=== PATIENT | female | born 1955 | race Two or more races ===

== ENCOUNTER 2017-12-31 08:58 | Outpatient (CLI) | payer OTHER ==
[~2017-12-31 08:58] MED LIST: ANTIVERT25 M1 PO; ATIVAN0.5 M1; CIPRO500 MG PO; DICLOFENAC SODI50 MG PO; LEVSIN/SL0.125 MG PO; OMEPRAZOLE20 MG PO; PAXIL40 MG; RESTORIL30 MG; SINGULAIR 10MG10 MG; SYMBICORT 16010.2 GM; SYNTHROID50 MCG
== END 2017-12-31 14:25 | disposition home or self-care (01) ==
LOC: RAD 501 08:58
DX: K62.5 Hemorrhage of anus and rectum (principal); K64.2 Third degree hemorrhoids; K59.09 Other constipation

== ENCOUNTER 2018-01-16 06:25 | Day surgery (SDC) | payer OTHER ==
[~2018-01-16 06:25] MED LIST changes: +CALTRATE 600 +1 EACH PO; +HYDROCHLOROTHIA25 MG PO; +LINZESS290 MCG PO; +LIPITOR20 MG PO; +LORAZEPAM0.5 MG PO; +PAROXETINE HCL40 MG PO; +VITAMIN D31000 UNIT PO
[2018-01-16] MEDS ORDERED: RECTICARE30 GM TOP (11:13)
[2018-01-16] MEDS ORDERED: PERCOCET 5-3251 EACH PO (11:13)
== END 2018-01-16 15:00 | disposition home or self-care (01) ==
LOC: CIR.AMB 06:25
DX: K64.8 Other hemorrhoids (principal); K64.4 Residual hemorrhoidal skin tags

== ENCOUNTER 2018-03-22 09:53 | Outpatient (CLI) | payer OTHER ==
[~2018-03-22 09:53] MED LIST changes: +PERCOCET 5-3251 EACH PO; +RECTICARE30 GM TOP
== END 2018-03-22 10:01 | disposition home or self-care (01) ==
LOC: SONOGRAMA 09:53 → MAMO-SONO 14:15
DX: R10.2 Pelvic and perineal pain (principal)

== ENCOUNTER 2018-03-22 10:34 | Emergency (ER) | payer OTHER ==
[~2018-03-22] VITALS: Ht 142.2 cm; Wt 83.0 kg
== END 2018-03-22 12:05 | disposition home or self-care (01) ==
LOC: ER 10:34
DX: M54.89 Other dorsalgia (principal)

== ENCOUNTER 2018-03-26 22:48 | Emergency (ER) | payer OTHER ==
[~2018-03-26] VITALS: Ht 149.9 cm; Wt 81.2 kg
[2018-03-27] MEDS ORDERED: PLAVIX75 MG PO (12:43)
[2018-03-27] MEDS ORDERED: MECLIZINE HCL12.5 MG PO (12:43)
== END 2018-03-27 13:45 | disposition home or self-care (01) ==
LOC: ER 22:48
DX: R42 Dizziness and giddiness (principal)
CPT/HCPCS: 70545

== ENCOUNTER 2018-05-14 13:46 | Emergency (ER) | payer OTHER ==
[~2018-05-14] VITALS: Ht 149.9 cm; Wt 85.7 kg
[~2018-05-14 13:46] MED LIST changes: +MECLIZINE HCL12.5 MG PO; +PLAVIX75 MG PO
== END 2018-05-14 17:32 | disposition home or self-care (01) ==
LOC: ER 13:46
DX: R20.0 Anesthesia of skin (principal); R20.2 Paresthesia of skin

== ENCOUNTER → 2018-06-05 | Outpatient (CLI) | payer OTHER | END | disposition home or self-care (01) | LOC: RAD 501 11:19 | DX: M54.2 Cervicalgia (principal) ==

== ENCOUNTER 2018-06-06 09:40 | Outpatient (CLI) | payer OTHER | END 2018-06-06 09:49 | disposition home or self-care (01) | LOC: NUCLEAR 09:40 | DX: I20.1 Angina pectoris with documented spasm (principal); I11.9 Hypertensive heart disease without heart failure | CPT/HCPCS: 78452; 93017; A9500; J0153 ==

== ENCOUNTER 2018-12-02 13:52 | Outpatient (CLI) | payer OTHER | END 2018-12-02 13:55 | disposition home or self-care (01) | LOC: MAMO-SONO 13:52 | DX: Z12.31 Encounter for screening mammogram for malignant neoplasm of breast (principal); Z87.898 Personal history of other specified conditions; N60.11 Diffuse cystic mastopathy of right breast; N60.12 Diffuse cystic mastopathy of left breast ==

== ENCOUNTER 2019-01-06 14:02 | Outpatient (CLI) | payer OTHER | END 2019-01-06 14:06 | disposition home or self-care (01) | LOC: NUCLEAR 14:02 | DX: M81.0 Age-related osteoporosis without current pathological fracture (principal) ==

== ENCOUNTER 2019-01-13 14:54 | Outpatient (CLI) | payer OTHER | END 2019-01-13 14:58 | disposition home or self-care (01) | LOC: RAD 501 14:54 | DX: M84.50XA Pathological fracture in neoplastic disease, unspecified site, initial encounter for fracture (principal); M54.5 Low back pain ==

== ENCOUNTER 2019-04-07 09:52 | Outpatient (CLI) | payer OTHER | END 2019-04-07 10:06 | disposition home or self-care (01) | LOC: MRI 09:52 | DX: M54.16 Radiculopathy, lumbar region (principal); M54.5 Low back pain | CPT/HCPCS: 72148 ==

== ENCOUNTER 2019-07-08 11:37 | Outpatient (CLI) | payer OTHER | END 2019-07-08 11:39 | disposition home or self-care (01) | LOC: RAD 11:37 | DX: M16.11 Unilateral primary osteoarthritis, right hip (principal) ==

== ENCOUNTER 2020-09-13 15:19 | Outpatient (CLI) | payer OTHER | END 2020-09-13 15:31 | disposition HB | LOC: RAD 15:19 | PROVIDERS: ATTEND Internal Medicine | DX: M25.511 Pain in right shoulder (principal); M25.512 Pain in left shoulder ==

== ENCOUNTER 2020-09-28 13:18 | Emergency (ER) | payer OTHER ==
[~2020-09-28] VITALS: Ht 142.2 cm; Wt 81.2 kg
[2020-09-28] MEDS ORDERED: ADULT LOW DOSE81 M1 PO (13:28)
[2020-09-28] MEDS ORDERED: LOSARTAN-HCTZ1 EACH PO (13:29)
[2020-09-28] MEDS ORDERED: GABAPENTIN100 M2 PO (13:29)
[2020-09-28] MEDS ORDERED: PAXIL20 MG PO (13:30)
== END 2020-09-28 17:32 | disposition home or self-care (01) ==
LOC: ER 13:18
DX: M54.12 Radiculopathy, cervical region (principal); M47.892 Other spondylosis, cervical region; M54.2 Cervicalgia; M62.838 Other muscle spasm

== ENCOUNTER 2020-10-13 13:52 | Outpatient (CLI) | payer OTHER ==
[~2020-10-13 13:52] MED LIST changes: +ADULT LOW DOSE81 M1 PO; +GABAPENTIN100 M2 PO; +LOSARTAN-HCTZ1 EACH PO; +PAXIL20 MG PO
== END 2020-10-13 14:00 | disposition home or self-care (01) ==
LOC: MRI 13:52
PROVIDERS: ATTEND Physical Medicine & Rehabilitation
DX: M54.12 Radiculopathy, cervical region (principal); M54.2 Cervicalgia
CPT/HCPCS: 72141

== ENCOUNTER → 2020-11-11 | Outpatient (CLI) | payer OTHER | END | disposition home or self-care (01) | LOC: MRI 11:55 | PROVIDERS: ATTEND Physical Medicine & Rehabilitation | DX: M75.111 Incomplete rotator cuff tear or rupture of right shoulder, not specified as traumatic (principal); M25.511 Pain in right shoulder | CPT/HCPCS: 73218 ==

== ENCOUNTER 2020-11-15 14:26 | Outpatient (CLI) | payer OTHER | END 2020-11-15 15:14 | disposition home or self-care (01) | LOC: RAD 14:26 | PROVIDERS: ATTEND Internal Medicine | DX: J44.1 Chronic obstructive pulmonary disease with (acute) exacerbation (principal) ==

== ENCOUNTER → 2020-11-23 | Outpatient (CLI) | payer OTHER | END | disposition home or self-care (01) | LOC: RAD 11:44 | PROVIDERS: ATTEND Orthopaedic Surgery | DX: M48.8X2 Other specified spondylopathies, cervical region (principal) ==

== ENCOUNTER → 2020-12-23 09:53 | Outpatient (CLI) | payer OTHER | END | disposition home or self-care (01) | LOC: RAD 09:53 → LAB 09:53 | PROVIDERS: ATTEND Orthopaedic Surgery | DX: E78.2 Mixed hyperlipidemia (principal); D68.9 Coagulation defect, unspecified; N39.0 Urinary tract infection, site not specified; R07.9 Chest pain, unspecified; I10 Essential (primary) hypertension ==

== ENCOUNTER 2021-02-17 11:50 | Outpatient (CLI) | payer OTHER | END 2021-02-17 12:03 | disposition home or self-care (01) | LOC: MAMO-SONO 11:50 | PROVIDERS: ATTEND Internal Medicine | DX: N63.0 Unspecified lump in unspecified breast (principal); Z12.31 Encounter for screening mammogram for malignant neoplasm of breast ==

== ENCOUNTER 2021-03-10 10:42 | Outpatient (CLI) | payer OTHER | END 2021-03-10 10:51 | disposition home or self-care (01) | LOC: MRI 10:42 | PROVIDERS: ATTEND Internal Medicine | DX: G44.221 Chronic tension-type headache, intractable (principal) | CPT/HCPCS: 70551 ==

== ENCOUNTER 2021-03-11 09:48 | Outpatient (CLI) | payer OTHER | END 2021-03-11 09:51 | disposition home or self-care (01) | LOC: RAD 09:48 | PROVIDERS: ATTEND Internal Medicine Pulmonary Disease | DX: I10 Essential (primary) hypertension (principal); J43.8 Other emphysema; R06.02 Shortness of breath ==

== ENCOUNTER 2021-07-08 07:54 | Outpatient (CLI) | payer OTHER | END 2021-07-08 08:06 | disposition home or self-care (01) | LOC: MRI 07:54 | PROVIDERS: ATTEND Neuromusculoskeletal Medicine & OMM | DX: R42 Dizziness and giddiness (principal); Q28.2 Arteriovenous malformation of cerebral vessels; H93.3X9 Disorders of unspecified acoustic nerve; I72.8 Aneurysm of other specified arteries; I65.1 Occlusion and stenosis of basilar artery | CPT/HCPCS: 70544; 70552; A9575; 70553 ==

== ENCOUNTER 2022-01-03 08:00 | Outpatient (CLI) | payer OTHER | END 2022-01-04 08:30 | disposition home or self-care (01) | LOC: PPH VACUNA 08:00 | PROVIDERS: ATTEND Emergency Medicine Pediatric Emergency Medicine | DX: Z23 Encounter for immunization (principal); Z71.85 Encounter for immunization safety counseling ==

== ENCOUNTER → 2022-01-24 07:49 | Outpatient (CLI) | payer OTHER | END | disposition home or self-care (01) | LOC: NUCLEAR 07:00 | PROVIDERS: ATTEND Internal Medicine | DX: E04.2 Nontoxic multinodular goiter (principal); E05.90 Thyrotoxicosis, unspecified without thyrotoxic crisis or storm | CPT/HCPCS: 78014; A9528 ==

== ENCOUNTER 2022-01-25 07:40 | Outpatient (CLI) | payer OTHER | END 2022-01-25 07:48 | disposition home or self-care (01) | LOC: NUCLEAR 07:40 | PROVIDERS: ATTEND Internal Medicine | DX: E04.2 Nontoxic multinodular goiter (principal); E05.90 Thyrotoxicosis, unspecified without thyrotoxic crisis or storm | CPT/HCPCS: 78014; A9528 ==

== ENCOUNTER 2022-05-03 14:21 | Outpatient (CLI) | payer OTHER | END 2022-05-03 14:27 | disposition home or self-care (01) | LOC: RAD 14:21 | PROVIDERS: ATTEND Internal Medicine | DX: S62.609A Fracture of unspecified phalanx of unspecified finger, initial encounter for closed fracture (principal); S62.627B Displaced fracture of middle phalanx of left little finger, initial encounter for open fracture ==

== ENCOUNTER 2022-05-10 09:54 | Outpatient (CLI) | payer OTHER | END 2022-05-10 10:01 | disposition home or self-care (01) | LOC: SONOGRAMA 09:54 | PROVIDERS: ATTEND Internal Medicine Sports Medicine | DX: E04.1 Nontoxic single thyroid nodule (principal) ==

== ENCOUNTER 2022-11-08 13:06 | Outpatient (CLI) | payer OTHER | END 2022-11-08 13:17 | disposition home or self-care (01) | LOC: MAMO-SONO 13:06 | PROVIDERS: ATTEND Internal Medicine | DX: Z12.31 Encounter for screening mammogram for malignant neoplasm of breast (principal); N64.4 Mastodynia; N60.11 Diffuse cystic mastopathy of right breast ==

== ENCOUNTER 2022-11-09 13:46 | Outpatient (CLI) | payer OTHER | END 2022-11-09 13:57 | disposition home or self-care (01) | LOC: NUCLEAR 13:46 | PROVIDERS: ATTEND Internal Medicine | DX: M81.0 Age-related osteoporosis without current pathological fracture (principal) ==

== ENCOUNTER 2024-03-04 12:42 | Outpatient (CLI) | payer OTHER | END 2024-03-04 12:48 | disposition home or self-care (01) | LOC: MAMO-SONO 12:42 | PROVIDERS: ATTEND Internal Medicine | DX: N64.4 Mastodynia (principal); R92.8 Other abnormal and inconclusive findings on diagnostic imaging of breast; Z12.31 Encounter for screening mammogram for malignant neoplasm of breast ==

== ENCOUNTER 2024-06-25 13:23 | Outpatient (CLI) | payer OTHER | END 2024-06-25 13:31 | disposition home or self-care (01) | LOC: RAD 13:23 | PROVIDERS: ATTEND Internal Medicine | DX: M54.17 Radiculopathy, lumbosacral region (principal); M25.561 Pain in right knee; M25.562 Pain in left knee ==

== ENCOUNTER 2024-09-13 11:55 | Emergency (ER) | payer OTHER ==
[~2024-09-13] VITALS: Ht 149.9 cm; Wt 78.5 kg
[2024-09-13 17:44] LABS: PH,URINE 8.5 (5.0-8.0); URINE APPEARANCE Clear; URINE BILIRRUBIN Negative (NEGATIVE); URINE BLOOD Negative; URINE COLOR Yellow; URINE GLUCOSE Negative (NEGATIVE); URINE KETONE Negative (NEGATIVE); URINE LEUKOCYTE Small; URINE NITRATE Negative; URINE PROTEIN 30 (NEGATIVE)
[2024-09-13 17:48] LABS: URINE BACTERIA 5372.1 uL (0.0-1933); URINE RBC 19.5 uL (0.0-20.8); URINE WBC 54.9 uL (0.0-23.2)
[2024-09-13 18:28] LABS: HEMATOCRIT 41.7 % (36.0-45.00); HEMOGLOBIN 14.1 g/dL (12.0-15.00); MEAN CELL VOLUME 84.2 fL (80.00-100.00); MEAN CORPUSCULAR HEMOGLOBIN 28.5 pg (27.00-32.0); MEAN CORPUSCULAR HGB CONC 33.9 g/dl (32.0-36.0); PLATELET COUNT 295 K/uL (150-450); RED BLOOD COUNT 4.95 M/uL (4.00-6.00); RED CELL DISTRIBUTION WIDTH 14.5 % (11.5-14.5)
[2024-09-13 18:31] LABS: ALBUMIN 3.8 gm/dL (3.4-5.0); BILIRUBIN TOTAL 0.41 mg/dL (0.3-1.2); CALCIUM 9.6 mg/dL (8.5-10.1); CREATININE SERUM 0.95 mg/dL (0.55-1.02); GFR 58.33; GLOBULINA 4.4 G/DL (2.4-3.5); POTASSIUM 4.14 mEq/L (3.5-5.1); TOTAL PROTEIN 8.2 gm/dL (6.4-8.2)
[2024-09-13 19:05] LABS: URINE CAST 0.58 uL (0.0-1.40); URINE EPITHELIAL CELLS > 201.7 uL (0.0-38.8)
== END 2024-09-13 20:26 | disposition home or self-care (01) ==
LOC: ER 11:57
PROVIDERS: General Practice
DX: N39.0 Urinary tract infection, site not specified (principal); R07.81 Pleurodynia; Z20.822 Contact with and (suspected) exposure to COVID-19

== ENCOUNTER 2024-10-22 07:13 | Outpatient (CLI) | payer OTHER | END 2024-10-22 07:16 | disposition home or self-care (01) | LOC: NUCLEAR 07:13 | PROVIDERS: ATTEND Internal Medicine | DX: K31.84 Gastroparesis (principal) | CPT/HCPCS: 78264; A9541 ==

== ENCOUNTER 2025-01-12 05:25 | Day surgery (SDC) | payer OTHER ==
[2025-01-06 08:46] LABS: HEMATOCRIT 36.7 % (36.0-45.00); HEMOGLOBIN 12.2 g/dL (12.0-15.00); MEAN CELL VOLUME 84.7 fL (80.00-100.00); MEAN CORPUSCULAR HEMOGLOBIN 28.1 pg (27.00-32.0); MEAN CORPUSCULAR HGB CONC 33.2 g/dl (32.0-36.0); PLATELET COUNT 242 K/uL (150-450); RED BLOOD COUNT 4.33 M/uL (4.00-6.00); RED CELL DISTRIBUTION WIDTH 13.8 % (11.5-14.5)
[2025-01-06 09:22] LABS: URINE APPEARANCE Clear; URINE BILIRRUBIN Negative (NEGATIVE); URINE BLOOD Negative; URINE COLOR Yellow; URINE GLUCOSE Negative (NEGATIVE); URINE KETONE Trace (NEGATIVE); URINE LEUKOCYTE Trace; URINE NITRATE Negative; URINE PROTEIN Trace (NEGATIVE)
[2025-01-06 09:22] LABS: INR 0.95; PARTIAL THROMBOPLASTIN TIME 27.6 SECONDS (22.0-34.0); PROTHROMBIN TIME 10.4 SECONDS (9.0-11.5)
[2025-01-06 09:27] LABS: URINE BACTERIA 5956.9 uL (0.0-1933); URINE EPITHELIAL CELLS 50.6 uL (0.0-38.8); URINE WBC 18.3 uL (0.0-23.2)
[2025-01-06 09:34] LABS: ALBUMIN 3.1 gm/dL (3.4-5.0); BILIRUBIN TOTAL 0.4 mg/dL (0.3-1.2); CALCIUM 8.3 mg/dL (8.5-10.1); CREATININE SERUM 0.93 mg/dL (0.55-1.02); GFR 59.6; GLOBULINA 3.5 G/DL (2.4-3.5); POTASSIUM 4.17 mEq/L (3.5-5.1); TOTAL PROTEIN 6.6 gm/dL (6.4-8.2)
[2025-01-06 09:42] LABS: COL EPI 87 SECONDS (82-175)
[2025-01-06 10:04] LABS: URINE CAST 0.73 uL (0.0-1.40)
[~2025-01-12 05:25] MED LIST changes: +PROTONIX40 MG PO
[2025-01-12] MEDS ORDERED: CEFAZOLIN SODIUM 1,000 MG VIAL ONE (06:34)
[2025-01-12] MEDS ORDERED: BUPIVACAINE HCL/MPF 0.5% 30ML VIAL ONE (06:57)
[2025-01-12] MEDS ORDERED: MORPHINE SULFATE 4 MG/ML VIAL IV ONE ×2 (10:10→10:40)
== END 2025-01-12 13:50 | disposition home or self-care (01) ==
LOC: CIR.AMB 05:25
PROVIDERS: ATTEND Orthopaedic Surgery
DX: S52.572A Other intraarticular fracture of lower end of left radius, initial encounter for closed fracture (principal); M24.532 Contracture, left wrist
CPT/HCPCS: 25609; 25280; 20902; L8699

== ENCOUNTER 2025-01-19 13:38 | Outpatient (CLI) | payer OTHER | END 2025-01-19 13:41 | disposition home or self-care (01) | LOC: RAD 13:38 | PROVIDERS: ATTEND Obstetrics & Gynecology Obstetrics | DX: S52.572D Other intraarticular fracture of lower end of left radius, subsequent encounter for closed fracture with routine healing (principal) ==

== ENCOUNTER 2025-03-11 08:36 | Outpatient (CLI) | payer OTHER | END 2025-03-11 08:44 | disposition home or self-care (01) | LOC: MRI 08:36 | PROVIDERS: ATTEND Neuromusculoskeletal Medicine & OMM | DX: M51.26 Other intervertebral disc displacement, lumbar region (principal); M51.360 Other intervertebral disc degeneration, lumbar region with discogenic back pain only | CPT/HCPCS: 72148 ==

== ENCOUNTER 2025-04-13 12:29 | Outpatient (CLI) | payer OTHER | END 2025-04-13 12:32 | disposition home or self-care (01) | LOC: RAD 12:29 | PROVIDERS: ATTEND Orthopaedic Surgery | DX: S52.572D Other intraarticular fracture of lower end of left radius, subsequent encounter for closed fracture with routine healing (principal) ==

== ENCOUNTER → 2025-04-20 11:14 | Outpatient (CLI) | payer OTHER ==
[2025-04-20 12:01] LABS: BASO % 0.7 % (0.1-1.2); EOS # 0.17 (0.04-0.54); EOS % 2.5 % (0.7-7.0); LYMPH # 1.94 (1.18-3.74); LYMPH % 28.4 % (19.3-53.1); MEAN PLATELET VOLUME 9.30 fl (9.4-12.4); MONO # 0.42 (0.24-0.82); MONO % 6.2 % (4.7-12.5); NEUT # 4.23 (1.56-6.13); NEUT % 62.1 % (34.0-71.1); RED CELL DISTRIBUTION WIDTH 13.5 % (11.6-14.4)
[2025-04-20 12:27] LABS: INR 1.00
[2025-04-20 12:34] LABS: URINE APPEARANCE Clear; URINE BILIRRUBIN Negative (NEGATIVE); URINE BLOOD Negative; URINE COLOR Yellow; URINE GLUCOSE Negative (NEGATIVE); URINE KETONE Trace (NEGATIVE); URINE LEUKOCYTE Small; URINE NITRATE Negative; URINE PROTEIN Trace (NEGATIVE); URINE UROBILINOGEN 1.0 E.U./dl
[2025-04-20 12:37] LABS: URINE BACTERIA 3695.8 uL (0.0-1933); URINE EPITHELIAL CELLS 63.3 uL (0.0-38.8); URINE RBC 7.6 uL (0.0-20.8); URINE WBC 27.5 uL (0.0-23.2)
[2025-04-20 12:43] LABS: COL EPI 136 SECONDS (82-175)
[2025-04-20 12:52] LABS: URINE CAST 0.14 uL (0.0-1.40)
[2025-04-20 13:34] LABS: BUN CREA RATIO 15.0 (7.0-25.0); CREATININE SERUM 0.8 mg/dL (0.55-1.02); GFR 70.91; GLUCOSE FASTING 97.0 mg/dL (65-100); OSMOLALITY SERUM 288.0 MOSM/KG (275-295)
[2025-04-20 13:35] LABS: ALT/SGPT 16.0 U/L (12-78); AST/SGOT 13.0 U/L (15-37); BILIRUBIN TOTAL 0.33 mg/dL (0.3-1.2); GLOBULINA 3.8 G/DL (2.4-3.5)
== END | disposition home or self-care (01) ==
LOC: LAB 11:14
PROVIDERS: ATTEND Orthopaedic Surgery
DX: D64.9 Anemia, unspecified (principal); E88.9 Metabolic disorder, unspecified; D68.8 Other specified coagulation defects; N39.0 Urinary tract infection, site not specified; Z22.322 Carrier or suspected carrier of Methicillin resistant Staphylococcus aureus; E11.9 Type 2 diabetes mellitus without complications

== ENCOUNTER 2025-05-18 13:45 | Outpatient (CLI) | payer OTHER | END 2025-05-18 13:52 | disposition home or self-care (01) | LOC: RAD 13:45 | PROVIDERS: ATTEND Internal Medicine | DX: J44.1 Chronic obstructive pulmonary disease with (acute) exacerbation (principal) ==

== ENCOUNTER 2025-06-03 09:04 | Outpatient (CLI) | payer OTHER ==
[2025-06-03 10:04] LABS: BASO % 0.7 % (0.1-1.2); EOS # 0.21 (0.04-0.54); EOS % 3.1 % (0.7-7.0); LYMPH # 2.03 (1.18-3.74); LYMPH % 30.3 % (19.3-53.1); MEAN PLATELET VOLUME 9.20 fl (9.4-12.4); MONO # 0.38 (0.24-0.82); MONO % 5.7 % (4.7-12.5); NEUT # 4.01 (1.56-6.13); NEUT % 60.1 % (34.0-71.1); RED CELL DISTRIBUTION WIDTH 13.0 % (11.6-14.4)
[2025-06-03 10:08] LABS: URINE APPEARANCE Clear; URINE BILIRRUBIN Negative (NEGATIVE); URINE BLOOD Negative; URINE COLOR Yellow; URINE GLUCOSE Negative (NEGATIVE); URINE KETONE Negative (NEGATIVE); URINE LEUKOCYTE Small; URINE NITRATE Negative; URINE PROTEIN Negative (NEGATIVE); URINE UROBILINOGEN 0.2 E.U./dl
[2025-06-03 10:09] LABS: URINE BACTERIA 1813.0 uL (0.0-1933); URINE EPITHELIAL CELLS 60.1 uL (0.0-38.8); URINE RBC 4.2 uL (0.0-20.8); URINE WBC 30.1 uL (0.0-23.2)
[2025-06-03 10:37] LABS: INR 1.0
[2025-06-03 11:03] LABS: URINE CAST 1.17 uL (0.0-1.40); URINE CRYSTALS FEW /HPF; URINE MUCUS MODERATE
[2025-06-03 11:10] LABS: ALT/SGPT 18.0 U/L (12-78); AST/SGOT 15.0 U/L (15-37); BILIRUBIN TOTAL 0.49 mg/dL (0.3-1.2); BUN CREA RATIO 12.0 (7.0-25.0); CREATININE SERUM 0.84 mg/dL (0.55-1.02); GFR 67.03; GLOBULINA 3.5 G/DL (2.4-3.5); GLUCOSE FASTING 96.0 mg/dL (65-100); OSMOLALITY SERUM 288.0 MOSM/KG (275-295)
== END 2025-06-03 09:12 | disposition home or self-care (01) ==
LOC: LAB 09:04
PROVIDERS: ATTEND Ophthalmology
DX: Z01.818 Encounter for other preprocedural examination (principal); H25.013 Cortical age-related cataract, bilateral; D68.8 Other specified coagulation defects; I10 Essential (primary) hypertension

== ENCOUNTER 2025-06-03 11:09 | Outpatient (CLI) | payer OTHER | END 2025-06-03 11:13 | disposition home or self-care (01) | LOC: RAD 11:09 | PROVIDERS: ATTEND Orthopaedic Surgery | DX: M84.834 Other disorders of continuity of bone, left radius (principal); S52.572S Other intraarticular fracture of lower end of left radius, sequela; X58.XXXS Exposure to other specified factors, sequela ==